=== PATIENT | female | born 1975 | race Caucasian/White ===

== ENCOUNTER 2019-04-06 11:26 | Emergency (ER) | payer SELFPAY ==
[~2019-04-06] VITALS: Wt 78.0 kg
[~2019-04-06 11:26] MED LIST: IRBE1TAB29; LOSA50TA14
[2019-04-06 11:33] VITALS: RESP 18
[2019-04-06] MEDS ORDERED: VITA200C45 PO (12:47)
[2019-04-06] MEDS ORDERED: AMLO-145 ORAL (12:47)
[2019-04-06] MEDS ORDERED: MAGN400T27 PO (12:47)
[2019-04-06] MEDS ORDERED: LORA0.5T PO (12:47)
[2019-04-06] MEDS ORDERED: CHOL100062 PO (12:47)
[2019-04-06 14:01] VITALS: BP 130/84; PULSE 74
[2019-04-06] MEDS ORDERED: CLON-379 PO (14:15)
--- NOTE | 2019-04-06 14:21 | ERD ---
ER Documentation Chief Complaint Chief Complaint light headed, anxious, feels having heart attack HPI This is a 43-year-old female with a past medical history of hypertension. The patient indicates that for over 5 years she has been maintaining her blood pressure on losartan. She indicates due to a recall she recently was changed 2 days ago by her primary care physician to 5 mg of amlodipine once daily. She indicates that she first took the medication 2 days prior to arrival. When she woke the next morning she stated she felt lightheaded and dizzy. She developed loose watery stools. She took her blood pressure was elevated at 159/99. She states she was feeling anxious. She denied any chest pressure that radiated to the neck arm back or jaw. She denies a headache. She denies any neck pain. She did states she was feeling intermittent numbness and tingling of her left hand. She does have an injury with a muscle strain of her left shoulder which has been chronic. She states she started to become more concerned and phone her primary care physician but there is no response. When the blood pressure was elevated she did double her dose yesterday for amlodipine which she stated improved her blood pressure. However when she woke this morning her blood pressure was again elevated at 153/96 at 10:11 AM. Therefore she came to the emergency department to be further evaluated. She has no shortness of breath at rest or exertion. ROS All systems reviewed and are negative except as per history of present illness. Medications Home Meds Active Scripts Clonidine Hcl* (Clonidine Hcl*) 0.1 Mg Tab, 0.1 MG PO BID PRN for ELEVATED BLOOD PRESSURE, #20 TAB Prov:ANEL AKINS MD 04/06/19 Reported Medications Vitamin E* (Vitamin E*) 200 Unit Capsule, 200 UNIT PO DAILY, CAP 04/06/19 Magnesium Oxide* (Mag-Oxide*) 400 Mg Tablet, 400 MG PO DAILY, TAB 04/06/19 Cholecalciferol* (Vitamin D3*) 1,000 Unit Tablet, 1000 UNIT PO DAILY, TAB 04/06/19 Lorazepam* (Lorazepam*) 0.5 Mg Tablet, 0.5 MG PO HS PRN for ANXIETY, TAB 04/06/19 Amlodipine Besylate* (Amlodipine Besylate*) 5 Mg Tablet, 1 TAB ORAL DAILY 04/06/19 Discontinued Reported Medications Irbesartan/Hydrochlorothiazide (Avalide) 1 Tab Tab 08/29/13 Losartan Potassium* (Losartan Potassium*) 50 Mg Tablet 08/29/13 Allergies Allergies: Coded Allergies: YAEL Inhibitors (Verified Allergy, Unknown, 04/06/19) Penicillins (Verified Allergy, Unknown, 04/06/19) Sulfa (Sulfonamide Antibiotics) (Verified Allergy, Unknown, 04/06/19) PMhx/Soc History of Surgery: Yes (Laparoscopy for endo) Anesthesia Reaction: No Hx Neurological Disorder: No Hx Respiratory Disorders: No Hx Cardiac Disorders: No Hx Psychiatric Problems: No Hx Miscellaneous Medical Probl: Yes (HTN) Hx Alcohol Use: No Hx Substance Use: No Hx Tobacco Use: No Smoking Status: Never smoker Physical Exam Vitals Vital Signs Date Temp Pulse Resp B/P (MAP) Pulse Ox O2 O2 Flow FiO2 Time Delivery Rate 04/06/19 74 130/84 14:01 (99) 04/06/19 98.1 74 18 170/93 99 11:33 (118) Physical Exam Constitutional:Well-developed. Well-nourished. HEENT:Normocephalic. Atraumatic.Pupils were equal round reactive to light. Neck: No nuchal rigidity. No lymphadenopathy. No posterior cervical spine tenderness or step-offs. No JVD Respiratory: Not using accessory muscles of respiration.Lungs were clear to auscultation bilaterally. No rhonchi. No rales. No wheezing. Cardiovascular: Regular rate regular rhythm.No murmurs. No rubs were appreciated.S1, S2 normal. Distal pulses are palpable 2+ bilaterally. GI: Abdomen was soft. Nontender. Non Distended. No pulsatile abdominal masses or bruits. NEURO: Patient was alert, awake, orientated x3.No facial droop. Gait observed and normal with no ataxia.Speech had regular rate and rhythm. No focal neur ological deficits. Result Diagram: 04/06/19 1249 04/06/19 1249 Results 24 hrs Laboratory Tests Test 04/06/19 12:49 White Blood Count 12.4 10^3/ul Red Blood Count 4.72 10^6/ul Hemoglobin 13.9 g/dl Hematocrit 41.7 % Mean Corpuscular Volume 88.3 fl Mean Corpuscular Hemoglobin 29.4 pg Mean Corpuscular Hemoglobin Concent 33.3 g/dl Red Cell Distribution Width 12.5 % Platelet Count 289 10^3/UL Mean Platelet Volume 10.1 fl Immature Granulocytes % 0.300 % Neutrophils % 79.1 % Lymphocytes % 13.6 % Monocytes % 6.1 % Eosinophils % 0.6 % Basophils % 0.3 % Nucleated Red Blood Cells % 0.0 /100WBC Immature Granulocytes # 0.040 10^3/ul Neutrophils # 9.8 10^3/ul Lymphocytes # 1.7 10^3/ul Monocytes # 0.8 10^3/ul Eosinophils # 0.1 10^3/ul Basophils # 0.0 10^3/ul Nucleated Red Blood Cells # 0.0 10^3/ul Prothrombin Time 12.0 Sec Prothrombin Time Ratio 0.9 INR International Normalized Ratio 0.88 Activated Partial Thromboplast Time 30.4 Sec Sodium Level 143 mmol/L Potassium Level 4.0 mmol/L Chloride Level 110 mmol/L Carbon Dioxide Level 22 mmol/L Anion Gap 11 Blood Urea Nitrogen 15 mg/dl Creatinine 0.49 mg/dl Est Glomerular Filtrat Rate mL/min > 60 mL/min Glucose Level 95 mg/dl Calcium Level 9.4 mg/dl Total Bilirubin 0.4 mg/dl Direct Bilirubin 0.00 mg/dl Indirect Bilirubin 0.4 mg/dl Aspartate Amino Transf (AST/SGOT) 21 IU/L Alanine Aminotransferase (ALT/SGPT) 31 IU/L Alkaline Phosphatase 82 IU/L Creatine Kinase 59 IU/L Creatine Kinase Index 1.1 Creatinine Kinase MB (Mass) 0.66 ng/ml Troponin I < 0.012 ng/ml B-Type Natriuretic Peptide 52 PG/ML Total Protein 7.8 g/dl Albumin 4.4 g/dl Globulin 3.40 g/dl Albumin/Globulin Ratio 1.29 Current Medications Medications Dose Sig/Ace Start Time Status Last (Trade) Ordered Route PRN Stop Time Admin Dose Reason Admin Clonidine 0.1 mg ONCE ONCE 04/06/19 DC (Catapres) PO 14:00 04/06/19 14:01 Procedures/MDM This patient presented to the emergency department with severely elevated blood pressure. My differential diagnosis included but was not limited to conditions that could end-organ damage such as acute coronary syndrome, acute pulmonary edema, aortic dissection, subarachnoid hemorrhage, intracerebral hemorrhage, cerebral infarction, withdrawal syndromes from beta blockers, or states of catecholamine excess such as pheochromocytoma or drug intoxication. Ancillary lab work was obtained. There was no elevation in the BUN and creatinine to suggest acute renal failure. Electrolytes were normal. Cardiac enzyme was normal and the 12 lead EKG showed no acute ischemic changes or left ventricular hypertrophy. 12 Lead EKG tracing ordered and reviewed by myself showed: Normal sinus rhythm of 91 bpm and no arrhythmia. MA interval normal. QRS duration normal. No ST segment elevation No ST segment depression. No changes consistent with acute ischemia. Regarding the numbness and tingling of the patient's left upper extremity I did feel this was more likely result of paresthesias. The patient had no physical exam findings to suggest a cerebrovascular accident. There is no evidence of compartment syndrome or necrotizing fasciitis. Given that the patient had an absence of cerebral, ocular, cardiac or renal damage the hypertensive urgency was treated without any oral agents in the emergency room with improvement of the patient's blood pressure as her blood pre ssure had spontaneously resolved to 130/60 mmHg. The patient likely appeared to be complaint with primary care physician and will follow up with their PCP in the next 24-48 hours. They were instructed to return to the emergency department at anytime if there is any worsening of their condition such as development of chest pain or a headache. They were instructed to resume previous medication regimen or initiate a suitable medication regimen under care of the PCP to enable proper monitoring for drug reactions. The patient was also informed on the adverse side effects and adverse drug interactions of the medications prescribed to them by myself. The patient gave informed consent to the prescri ption of the new medication. She was given a prescription of clonidine to take if needed as a rescue medication for severely elevated blood pressure. Departure Diagnosis: Primary Impression: Accelerated hypertension Condition: Fair Patient Instructions: Hypertension, Established, Out Of Control, Paraesthesias ANEL AKINS MD Apr 06, 2019 14:21
== END 2019-04-06 14:22 | disposition home or self-care (01) ==
LOC: E/R 11:26
DX: I10 Essential (primary) hypertension (principal)
CPT/HCPCS: 80053; 82550; 82553; 83880; 84484; 85025; 85610; 85730; 93005; 99283